=== PATIENT | male | born 1960 | race Caucasian/White ===

== ENCOUNTER 2018-02-02 02:45 | Inpatient (IN) ==
[2018-02-02] MEDS ORDERED: NS 1,000 ML IV ONE ×4 (03:12→04:40)
[2018-02-02] MEDS: SALINE FLUSH 10ml SYRINGE IVF PRN ×2 (03:16→05:33)
--- NOTE | 2018-02-02 03:16 | Emergency Department Report ---
Asthma HPI - General Stated Complaint: fever, v/d, cough Time Seen by Provider: 02/02/18 03:10 Source: patient, family, RN notes reviewed, old records reviewed Mode of arrival: wheelchair Limitations: altered mental status - History of Present Illness HPI Narrative: 57yo man presented to the ER by family for cough/dyspnea/weakness for the past 6 days. Today, pt vomited x1. Pt has refused to see anyone about his sx; sx have been progressive, and today, pt has been confused. Pts family are concerned about him, so they presented him to the ER for further evaluation. Pt does not want to be here, and is ready to be released to home already. MD complaint: shortness of breath Onset (ago): day(s) Severity: severe Associated symptoms: fever - Related Data Current Asthma Therapy: none Home Medications Medication Instructions Recorded Confirmed No known Home medications [No home 07/26/17 02/02/18 meds] Allergies Allergy/AdvReac Type Severity Reaction Status Date / Time No Known Allergies Allergy Verified 02/02/18 03:20 Review of Systems All systems: reviewed and negative except as stated Constitutional: Reports: as per HPI, fever, weakness. Denies: chills, weight change, night sweats Gastrointestinal: Reports: as per HPI, abdominal pain, nausea, vomiting, diarrhea. 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 @ [employer] Current occupational exposures/hazards: No Physical Exam - Limitations Limitations: no limitations - General General appearance: alert, in no apparent distress, obese (Morbid) - Normal Exams: Head:: Normocephalic without trauma Eyes:: Pupils are PERRLA w/ EOMI, No scleral icterus, irritation, or foreign bodies noted ENMT:: No facial trauma, nasal exudates, pharyngeal erythema, or exudates are noted Neck:: Full range of motion, without adenopathy Lymphatic:: No lymphadenopathy Musculoskeletal:: No tenderness, or deformity noted Integumentary:: No rashes, hives, or bruising noted Neurological:: Patient is alert, and oriented - Chest Chest inspection: Present: normal inspection, symmetric chest wall rise. Absent : tenderness, rash - Respiratory Respiratory exam: Present: normal lung sounds bilaterally. Absent: respiratory distress, wheezes, stridor, prolonged expiratory phase, crackles - Cardiovascular Cardiovascular exam: Present: regular rate, normal rhythm, normal heart sounds. Absent: rubs, gallop, clicks - Abdominal Exam Abdominal exam: Present: soft, normal bowel sounds. Absent: distention, tenderness, guarding, rebound, rigidity - Psychiatric Psychiatric exam: Present: flat affect Course - Consultations Consultation #1: Heath Telemed: Will admit for further treatment of presumptive RLL PNA with severe sepsis and ARF. Time: 03:48 Vital Signs Temperature 98.0 F 02/02/18 02:51 Pulse Rate 94 02/02/18 02:51 Respiratory Rate 16 02/02/18 02:51 Blood Pressure 113/60 02/02/18 02:51 Pulse Oximetry 88 L 02/02/18 02:51 Temperature 98.0 F 02/02/18 02:51 Pulse Rate 86 02/02/18 03:37 Respiratory Rate 16 02/02/18 03:37 Blood Pressure 88/54 02/02/18 03:37 Pulse Oximetry 94 02/02/18 03:37 Dyspnea - MDM Narrative Medical decision making narrative: Pt with severe sepsis based on bandemia, hypoxia, hypotension, suspected PNA, and lactate. Pressures have improved with fluids; SaO2 improved with supplemental O2. Atbx, empiric, already on board. - Differential Diagnosis Differential diagnosis: Likely: Acute exacerbation, Pneumonia, COPD exacerbation (gastroenteritis) - Medical Records Attestation: I reviewed the patient's medical records. - Lab Data Attestation: I reviewed the patient's lab results. Result diagrams: 02/02/18 03:18 02/02/18 03:18 Lab Results 02/02/18 02/02/18 Range/Units 03:18 03:18 WBC 4.6 (4.5-11.0) T/MM3 RBC 3.46 L (4.50-5.90) M/MM3 Hgb 10.5 L (13.5-17.5) GM/DL Hct 32.0 L (41-53) % MCV 92.5 (80-100) UM3 MCH 30.3 (26-34) UUG MCHC 32.8 (31-37) GM/DL RDW Std Deviation 60.3 H (36.9-50.2) FL Plt Count 155 (130-400) T/MM3 MPV 10.9 (9.4-12.4) UM3 Immature Gran % (Auto) Not performed Neut % (Auto) Not performed Lymph % (Auto) Not performed Mellette % (Auto) Not performed Eos % (Auto) Not performed Baso % (Auto) Not performed Neut # (Auto) Not performed Lymph # (Auto) Not performed Mellette # (Auto) Not performed Eos # (Auto) Not performed Baso # (Auto) Not performed Abs Immat Gran (auto) Not performed Neutrophils % (Manual) 66.0 (33-66) % Band Neutrophils % 21.0 H (0-6) % Lymphocytes % (Manual) 12.0 L (23-45) % Monocytes % (Manual) 1.0 (0-9.0) % Neutrophils # (Manual) 3.0 (1.8-7.7) T/MM3 Band Neutrophils # 1.0 T/MM3 Lymphocytes # (Manual) 0.6 L (1-4.8) T/MM3 Monocytes # (Manual) 0.0 (0-0.8) T/MM3 RBC Morph Comment Normal Turbidity < 20 (0-20) Sodium 139 (134-144) MEQ/L Potassium 4.0 (3.6-5) MEQ/L Chloride 104 (98-107) MEQ/L Carbon Dioxide 20 L (22-30) MEQ/L Anion Gap 15 (5-15) meq/L BUN 49.0 H (9-20) MG/DL Creatinine 2.7 H (0.8-1.5) mg/dL GFR Calculation 24 BUN/Creatinine Ratio 18 (6-26) RATIO Glucose 135 H (75-110) MG/DL Calculated Osmolality 283 H (261-280) MOSM/KG Calcium 8.8 (8.4-10.2) MG/DL Icterus Index < 2 (0-7) Troponin I < 0.012 (0-0.12) ng/ml NT-Pro-B Natriuret Pep 754 H (0-175) pg/mL Plasma Lactate 4.1 H* (0.6-2.2) MMOL/L Specimen Hemolysis < 15 (0-25) - Radiology Data Attestation: I reviewed the patient's radiology results. CXR: B/l LL infiltrates c/w atalectasis or pulm edema. No focal consolidations or effusions. - EKG Data EKG #1 EKG attestation: Yes: I reviewed and interpreted this EKG. EKG shows normal: sinus rhythm, intervals, QRS complexes, ST-T waves Rate [ED.COU.EKR]: normal Steen/QRS: left axis deviation Interpretation: other (C/w pulm dz) Disposition Clinical Impression: Severe sepsis Pneumonia Qualifiers: Pneumonia type: due to unspecified organism Laterality: right Lung location: lower lobe of lung Qualified Code(s): J18.1 - Lobar pneumonia, unspecified organism ARF (acute renal failure) Qualifiers: Acute renal failure type: unspecified Qualified Code(s): N17.9 - Acute kidney failure, unspecified Disposition: 02 To [facility] [place] Print Language: Sinhala Condition: Improved Prescriptions: No Action No known Home medications [No home meds] 0 #0 [facility] [place] Time of Disposition: 03:55 - Seen By: physician
[2018-02-02] MEDS ORDERED: ONDANSETRON 4 MG/2 ML INJECTION IVP ONE (03:17)
[2018-02-02] MEDS ORDERED: CEFEPIME 1 GM in NS 100 ML IV ONE (03:21)
[2018-02-02] MEDS: LEVOFLOXACIN PB 750 MG/150 ML BAG IV SCH (04:11)
[2018-02-02] MEDS ORDERED: LEVOFLOXACIN PB 750 MG/150 ML BAG IV SCH (04:40)
[2018-02-02] MEDS ORDERED: CEFEPIME 1 GM in NS 100 ML IV SCH (04:40)
--- NOTE | 2018-02-02 05:08 | History & Physical Report ---
History of Present Illness Date: 02/02/18 Chief complaint: confused HPI: This is a very nice 57 y/o male who does not seek health care and has no advertised medical problems. The patient this past Saturday had onset of fever chills and sweats. Cough that was non productive. The patient had congestion, no ear pain, no sore throat, He had chest pain with cough. Increased fatigue and overall did not feel well. He resisted seeking medical care. Today the patient had onset of confusion with his fever. He agreed to come into the ED for evaluation. Labs demonstrated bandemia of 20%/. CXR probable right lower lobe infiltrate. His lactic acid was elevated and evidence of acute renal failure. He will be covered with agressive antibitoics and all cultures will be sent. He was initially hypotensive but did respond to fluids. Review of Systems Review of systems: mild headache, no change in vision. no neck or jaw pain, non productive cough that is worsening. no abdomen pain no nausa/vomiting, no change in bm, no blood in stool. no skin rashes, no new joint pain. no focal neuro complaints. 12 point ROS otherwise neg except for outlined above. Past Medical History Medical History Updates: Denies PMHx (never sees a doctor) Surgical History: no surgical history to report Family History: Family History (Last Updated 07/26/17 @ 17:19 by Yasmin Valdez Myranda) Father Melanoma Mother Cancer of breast Paternal Grandfather Cancer of lung Family History: As Above - Social History Smoking status: Never smoker Medications Home Medications Medication Instructions Recorded Confirmed Type No known Home medications [No home 07/26/17 02/02/18 History meds] Allergies Allergy/AdvReac Type Severity Reaction Status Date / Time No Known Allergies Allergy Verified 02/02/18 03:20 Exam Vital Signs: Temperature 98.0 F 02/02/18 04:45 Pulse Rate 102 H 02/02/18 04:45 Respiratory Rate 20 02/02/18 04:45 Blood Pressure 132/72 02/02/18 04:45 Pulse Oximetry 96 02/02/18 04:45 Telemetry Rhythm: Sinus Rhythm - Constitutional Present: well nourished, well developed, morbidly obese, cooperative - Routine HEENT Exam Head: Present: normocephalic, atraumatic, cushingoid faces Eye: Present: PERRL ENT: Present: mucous membranes moist - Routine Neck Exam Present: supple, full ROM - Routine Respiratory Exam Comments: rhonchi in bases bilaterally - Routine Cardiovascular Exam Present: RRR, no murmur, tachycardia - Routine Abdominal Exam Comments: morbidly obese, very difficult examination. non tender per nursing palpation - Routine Extremities Exam Present: edema, full ROM - Routine Back/Spine/Pelvis Exam Back/Spine: Present: full ROM - Routine Skin Exam Present: intact, dry, warm, normal turgor. Absent: scars, wounds, rash - Routine Neurological Exam Present: oriented X3, CN II-XII intact, moving all extremities, normal tone, vision grossly intact, hearing grossly intact. Absent: motor deficit, altered mental status, hemineglect - Routine Psychiatric Exam Present: normal affect, normal thought process Results - Labs CBC & Chem 7: 02/02/18 03:18 02/02/18 03:18 Labs: results reviewed above and will be addressed below pCXR poor inspiration. evidence of right greater than left atelectasis vs infiltrate Assessment and Plan (1) Septic shock Current visit: Yes Status: Acute (2) ARF (acute renal failure) Current visit: Yes Status: Acute (3) Morbid obesity Current visit: Yes Status: Acute Assessment and Plan: 1. community acquired pneumonia: septic shock on presentation. cefepime/ levaquin. cx sent, adjust based on culture 2. septic shock acute POA: tachy, bandemia, elevated lA and hypotension. responded to 30cc/kg fluids bolus. 3 l. blood presure with improved MAP. no need for pressors. did not start in ICU. continue to monitor sepsis markers 3. acute renal failure POA: hopeful pre renal. fluids and repeat labs in the am. Look at urine sediment. 4. normocytic anemia acute POA: not sure the mechanism for this patient. will check anemia panel and make further recommendations 5. morbid obeisty acute POA; BMI 42. to be aware of 6. dvt ppx; SCD, lovenox 7. gastric ppx; PPI. DVT Prophylaxis: SCD's, Lovenox GI Prophylaxis: Protonix Resuscitation Status: Full Code - Time spent with patient Time with patient PN: 50 minutes - Physician Narrative Physician: Fauzia Vásquez MD Narrative: Date: 02/02/18 Time: 0505 Hospital Course Summary Disclaimer: The visit summary below is not to be considered part of the above Progress Note.
[2018-02-02 05:15] VITALS: BMI 43.6
[2018-02-02] MEDS ORDERED: NS 1,000 ML IV SCH (05:15)
[2018-02-02] MEDS: PANTOPRAZOLE 40 MG INJECTION IVP SCH ×2 (05:31→17:00)
[2018-02-02] MEDS ORDERED: ALBUTEROL/IPRATROPIUM 2.5mg-0.5mg/3ml NEB AEROSOL PRN (07:13)
[2018-02-02] MEDS: ALBUTEROL/IPRATROPIUM 2.5mg-0.5mg/3ml NEB AEROSOL SCH ×4 (07:15→21:03)
[2018-02-02] MEDS: BUDESONIDE INH.SOLN 0.5mg/2ml NEB AEROSOL SCH ×2 (07:17→21:03)
--- NOTE | 2018-02-02 08:18 | XRay Report ---
Indication: Dyspnea PROCEDURE: XR chest 1V: Encounter: Initial Comparison: July 26, 2017 Findings: Increased opacity in the right lower lung field. Lungs are hypoinflated. Left lung appears clear. No pneumothorax or effusion. Heart size, mediastinal contours and pulmonary vascularity are stable. Impression: Right lower lobe airspace disease could represent atelectasis, pneumonia or aspiration. .
[2018-02-02] MEDS: CEFTRIAXONE 1,000 MG in NS 100 ML IV SCH (14:15)
[2018-02-02] MEDS: LR 1,000 ML IV SCH (17:47)
[2018-02-03] MEDS: LEVOFLOXACIN PB 750 MG/150 ML BAG IV SCH (04:14)
[2018-02-03] MEDS: PANTOPRAZOLE 40 MG INJECTION IVP SCH ×2 (06:17→17:41)
[2018-02-03] MEDS: LR 1,000 ML IV SCH ×2 (06:17→16:31)
[2018-02-03] MEDS: BUDESONIDE INH.SOLN 0.5mg/2ml NEB AEROSOL SCH ×2 (08:41→20:52)
[2018-02-03] MEDS: ALBUTEROL/IPRATROPIUM 2.5mg-0.5mg/3ml NEB AEROSOL SCH ×4 (08:41→20:52)
[2018-02-03] MEDS: CEFTRIAXONE 1,000 MG in NS 100 ML IV SCH (09:21)
--- NOTE | 2018-02-03 09:32 | Ultrasound Report ---
EXAM: US renal BI DATE: 02/03/2018 2:05 PM SITE OF DICTATION: Chaim. INDICATION: brisa, unknown renal baseline COMPARISON: None available. TECHNIQUE: Multiple real-time grayscale sonographic images were obtained of the right and left kidneys with color flow and spectral analysis. FINDINGS: The right kidney demonstrates normal corticomedullary differentiation and measures 11.94 x 6.71 x 5.38 cm. There is no right sided mass, calculus or hydronephrosis. The left kidney demonstrates normal corticomedullary differentiation and measures 12.10 x 6.29 x 4.87 cm. There is no left sided mass, calculus or hydronephrosis. Normal bilateral ureteral jets are present. Post void residual volume within the urinary bladder is minimal. IMPRESSION: Normal renal ultrasound. .
[2018-02-03] MEDS ORDERED: IRON - PHARMACY CONSULT MC ONE (15:06)
--- NOTE | 2018-02-03 15:11 | Progress Note ---
- Date 02/03/18 Subjective: Rodrigue is seen today in follow up. He continues to be on 2 liters of oxygen and states that he is feeling better. He does ask to be discharged home today. He continues to have cough during examination. Denies having pain. Appetite has improved and no difficulty with urination. Objective Vital signs: Temperature 97.5 F 02/03/18 08:20 Pulse Rate 83 02/03/18 08:20 Respiratory Rate 20 02/03/18 12:35 Blood Pressure 143/74 H 02/03/18 08:20 Pulse Oximetry 96 02/03/18 12:35 Height/Weight/BMI: Height 1.83 m Weight 145.9 kg Body Mass Index 43.6 - Constitutional Present: no acute distress, well nourished, well developed - Routine HEENT Exam Eye: Present: EOMI ENT: Present: mucous membranes moist, dentition normal - Routine Respiratory Exam Present: diminished air movement. Absent: wheezes - Routine Cardiovascular Exam Present: RRR, S1, S2. Absent: murmur - Routine Abdominal Exam Present: soft, normoactive bowel sounds, non distended. Absent: tenderness - Routine Extremities Exam Present: normal capillary refill - Routine Skin Exam Present: intact, dry, warm - Routine Neurological Exam Present: alert, oriented X3, CN II-XII intact - Routine Lymphatic Exam Lymphatic: Absent: adenopathy - Routine Psychiatric Exam Present: normal affect, normal thought process, cooperative Results - Labs CBC & Chem 7: 02/03/18 04:14 02/03/18 04:14 Assessment and Plan (1) ARF (acute renal failure) Current visit: Yes Status: Acute (2) Septic shock Current visit: Yes Status: Acute (3) Morbid obesity Current visit: Yes Status: Acute Assessment and Plan: Impression Septic shock CAP Acute respiratory failure with hypoxia Acute renal failure Iron Def anemia Morbid Obesity Plan Serial lactate have trended down. Continues on IV Levaquin and Cefepime Continues on oxygen to maintain saturations. will work on weaning down Continue with IV fluid hydration. Renal function is improving. Suspect pre- renal due to hydration Will have him begin to ambulate TID He is very eager to be discharged home. Discussed will need to continue to work on weaning down oxygen and hydration reports he begin getting sick when he was taking ZZZquil (this is Benadryl 25mg). She wonders if this caused the sepsis. Highly unlikely to be related. SCDs for DVT PPX . 02/03/2018-8:30 PM-I examined the patient independently. I reviewed this chart , the patient history, and the [employer]'s/PA's documented findings as above. We discussed and formulated the assessment and plan as above with the additions below.-Dr. Wise Patient was seen this evening in his room. He states he's feeling much better than yesterday. He is currently off of oxygen. His cough is better. He is eating and drinking well. He is urinating frequently on IV fluids. Lab shows creatinine has improved from 2.7 down to 1.6. Hemoglobin is also dropped from 10.5-8.5. He states he has a history of iron deficiency. He has never had a colonoscopy or EGD. He has not seen a doctor in several years. On exam he is alert and in no acute distress. Chest is clear to auscultation. Cardiovascular reveals a regular rate and rhythm. Abdomen is soft and nontender. Extremities are free of edema. Impression and plan Septic shock-resolved Community-acquired pneumonia-improved, continue antibiotics, chest x-ray tomorrow Repeat basic metabolic and CBC with differential tomorrow. Possible dismissal tomorrow. He will need to establish with a primary care doctor. He will need follow-up for his anemia. He will likely need an EGD and colonoscopy. Discussed with the patient and his this evening. - Physician Narrative Narrative: Date: 02/03/18 Time: 1507 Hospital Course Summary Disclaimer: The visit summary below is not to be considered part of the above Progress Note. Hospital Course: 02/03 Serial lactate have trended down. Continues on IV Levaquin and Cefepime Continues on oxygen to maintain saturations. will work on weaning down Continue with IV fluid hydration. Renal function is improving. Suspect pre- renal due to hydration Will have him begin to ambulate TID He is very eager to be discharged home. Discussed will need to continue to work on weaning down oxygen and hydration reports he begin getting sick when he was taking ZZZquil (this is Benadryl 25mg). She wonders if this caused the sepsis. Highly unlikely to be related. SCDs for DVT PPX
[2018-02-03] MEDS ORDERED: FERRIC CARBOXYMALTOSE IV SCH (15:45)
[2018-02-03] MEDS ORDERED: NS IV SCH (15:45)
[2018-02-03] MEDS: SALINE FLUSH 10ml SYRINGE IVF PRN (17:41)
[2018-02-03] MEDS ORDERED: ACETAMINOPHEN 325 MG TABLET PO ONE ×2 (19:44)
[2018-02-03] MEDS ORDERED: ACETAMINOPHEN 325 MG TABLET PO PRN ×2 (19:51→20:01)
[2018-02-04] MEDS: PANTOPRAZOLE 40 MG INJECTION IVP SCH (03:44)
[2018-02-04] MEDS: LEVOFLOXACIN PB 750 MG/150 ML BAG IV SCH (03:45)
[2018-02-04 08:11] VITALS: BP 155/100; TEMP 99.2
--- NOTE | 2018-02-04 08:12 | Pharmacy Consult ---
Pharmacy Consult-Iron - Laboratory Information Iron [facility] 02/03/18 02/03/18 02/04/18 04:14 04:14 05:06 Hgb 8.5 L D 9.1 L Hct 26.3 L D 27.2 L Iron 42 L TIBC 193 L % Saturation 22 - Consult Information IV IRON THERAPY: There is a nationwide shortage of iron dextran so I used Injectfer 750 mg iv. The pateint will need another dose in 7 days. Fan Pinon [facility]
[2018-02-04 08:13] VITALS: PULSE 77
--- NOTE | 2018-02-04 08:36 | XRay Report ---
INDICATION: pneumonia? PROCEDURE: CHEST 2-VIEWS UPRIGHT (PA & LAT) Encounter: Initial COMPARISON: February 02, 2018 FINDINGS: Continued airspace consolidation in the right lower lobe. There is also new airspace disease in the lingula. No pneumothorax or pleural effusion. Heart size and mediastinal contours are stable. Pulmonary vascularity is normal. Impression: Persistent right lower lobe pneumonia with developing lingular infiltrate could represent peribronchial spread of infection. .
[2018-02-04] MEDS: BUDESONIDE INH.SOLN 0.5mg/2ml NEB AEROSOL SCH (08:58)
[2018-02-04] MEDS: ALBUTEROL/IPRATROPIUM 2.5mg-0.5mg/3ml NEB AEROSOL SCH (08:58)
[2018-02-04 09:19] VITALS: RESP 20; O2SAT 90
[2018-02-04] MEDS: CEFTRIAXONE 1,000 MG in NS 100 ML IV SCH (09:26)
--- NOTE | 2018-02-04 10:04 | Discharge Summary ---
Discharge Information Date of admission: 02/02/18 04:00 Anticipated date of discharge: 02/04/18 Attending Physician: Dominga Wise MD Primary care physician: Going to establish with Dr Aravind Bradley Consults: None - Discharge Diagnosis (1) ARF (acute renal failure) Status: Acute (2) Septic shock Status: Acute (3) Morbid obesity Status: Acute Septic shock CAP Acute respiratory failure with hypoxia Acute renal failure Iron Def anemia Morbid Obesity Elevated blood pressure-may be white coat syndrome-no medications started for bp this admission - Procedures Procedures: None - Laboratory Labs: 02/04/18 05:06 02/04/18 05:06 Laboratory Tests 02/02/18 02/02/18 02/02/18 03:18 03:18 09:05 Hgb 10.5 L MCV 92.5 Neutrophils % (Manual) 66.0 Band Neutrophils % 21.0 H BUN 49.0 H Creatinine 2.7 H Iron TIBC % Saturation Ferritin Troponin I < 0.012 Plasma Lactate 4.1 H* 4.4 H* Vitamin B12 Folate 02/02/18 02/02/18 02/03/18 16:14 18:53 04:14 Hgb MCV Neutrophils % (Manual) Band Neutrophils % BUN Creatinine Iron TIBC % Saturation Ferritin Troponin I Plasma Lactate 2.4 H 2.0 1.3 Vitamin B12 Folate 02/03/18 02/03/18 02/04/18 04:14 04:14 05:06 Hgb 8.5 L D MCV Neutrophils % (Manual) Band Neutrophils % BUN Creatinine Iron 42 L TIBC 193 L % Saturation 22 Ferritin 304 Troponin I Plasma Lactate Vitamin B12 Pending Folate Pending 02/04/18 05:06 Hgb 9.1 L MCV Neutrophils % (Manual) 66.0 Band Neutrophils % 1.0 D BUN Creatinine Iron TIBC % Saturation Ferritin Troponin I Plasma Lactate Vitamin B12 Folate - Microbiology Microbiology 02/02/18 07:01 Urine Legionella Urinary Antigen - Final-negative Blood cultures 2- negative to date - Radiology Radiology: 02/02/17- Chest Xray- Impression: Right lower lobe airspace disease could represent atelectasis, pneumonia or aspiration. 02/03/18- Renal Sonogram- Normal renal ultrasound. 02/04/18- Chest Xray- Impression: Persistent right lower lobe pneumonia with developing lingular infiltrate could represent peribronchial spread of infection. - Pathology None History of Present Illness HPI: This is a very nice 57 y/o male who does not seek health care and has no advertised medical problems. The patient this past Saturday had onset of fever chills and sweats. Cough that was non productive. The patient had congestion, no ear pain, no sore throat, He had chest pain with cough. Increased fatigue and overall did not feel well. He resisted seeking medical care. Today the patient had onset of confusion with his fever. He agreed to come into the ED for evaluation. Labs demonstrated bandemia of 20%/. CXR probable right lower lobe infiltrate. His lactic acid was elevated and evidence of acute renal failure. He will be covered with agressive antibitoics and all cultures will be sent. He was initially hypotensive but did respond to fluids. Objective Vital signs: Temperature 99.2 F 02/04/18 08:00 Pulse Rate 77 02/04/18 08:00 Respiratory Rate 20 02/04/18 09:14 Blood Pressure 155/100 H 02/04/18 08:00 Pulse Oximetry 90 02/04/18 09:14 Height/Weight/BMI: Height 1.83 m Weight 145.6 kg Body Mass Index 43.6 - Constitutional Present: no acute distress, well nourished, well developed - Routine HEENT Exam Eye: Present: EOMI ENT: Present: mucous membranes moist, dentition normal - Routine Respiratory Exam Absent: wheezes Comments: Course breath sound right - Routine Cardiovascular Exam Present: RRR, S1, S2. Absent: murmur - Routine Abdominal Exam Present: soft, normoactive bowel sounds, non distended. Absent: tenderness - Routine Extremities Exam Present: no edema - Routine Skin Exam Present: intact, dry, warm - Routine Neurological Exam Present: alert, oriented X3, CN II-XII intact, moving all extremities - Routine Lymphatic Exam Lymphatic: Absent: adenopathy - Routine Psychiatric Exam Present: normal affect, normal thought process, cooperative Hospital Course This is a general summary of the patient's hospital course. For more details refer to the complete medical record. Hospital course: 02/02/18- Admission (1) Septic shock Current visit: Yes Status: Acute (2) ARF (acute renal failure) Current visit: Yes Status: Acute (3) Morbid obesity Current visit: Yes Status: Acute Assessment and Plan: 1. community acquired pneumonia: septic shock on presentation. cefepime/ levaquin. cx sent, adjust based on culture 2. septic shock acute POA: tachy, bandemia, elevated lA and hypotension. responded to 30cc/kg fluids bolus. 3 l. blood presure with improved MAP. no need for pressors. did not start in ICU. continue to monitor sepsis markers 3. acute renal failure POA: hopeful pre renal. fluids and repeat labs in the am. Look at urine sediment. 4. normocytic anemia acute POA: not sure the mechanism for this patient. will check anemia panel and make further recommendations 5. morbid obeisty acute POA; BMI 42. to be aware of 6. dvt ppx; SCD, lovenox 7. gastric ppx; PPI. 02/03 Serial lactate have trended down. Continues on IV Levaquin and Cefepime Continues on oxygen to maintain saturations. will work on weaning down Continue with IV fluid hydration. Renal function is improving. Suspect pre- renal due to hydration Will have him begin to ambulate TID He is very eager to be discharged home. Discussed will need to continue to work on weaning down oxygen and hydration reports he begin getting sick when he was taking ZZZquil (this is Benadryl 25mg). She wonders if this caused the sepsis. Highly unlikely to be related. SCDs for DVT PPX 02/04/18-Discharge- Rodrigue is seen and examined today prior to discharge. Overall , he states that he is feeling better in regards to his dyspnea and cough. He does continue to feel worn down and fatigued. He has been able to wean off oxygen and remained on room air throughout the night. Although he did have approximately 5% of the time in which he was less than 89%. He does not qualify for any home oxygen. She will continue to be on Levaquin 750 milligrams daily for 5 additional days. It is recommended that he utilize Mucinex twice a day. In regards to his anemia. We will start patient on iron supplementation. I did discuss at great length with patient and regarding the importance of primary care establishment. He is planning to establish with Dr. Aravind Bradley. I also discussed the importance of anemia workup including possible colonoscopy at which he seems quite reluctant to. He is willing to establish with primary care and follow-up. He is discharged in stable condition with Time spent with patient: discharge greater than 30 minutes Resuscitation Status: Full Code Discharge Plan - Discharge Disposition Discharge Date: 02/04/18 Disposition: 01 Discharged Home, Self-Care *Condition: Improved Reason For Visit (Visit label in EMR): pneumonia,sepsis - Discharge Medications *Discharge Medications: New levoFLOXacin [Levaquin] 750 mg PO ACB #5 tab guaiFENesin [Mucinex] 600 mg PO BID #10 tab.er.12h Ferrous Gluconate 1 tab PO BIDWM #30 tab - Discharge Packet/Instructions *Diet: Regular *Activity: As tolerated *Pain Management/Treatment: Tylenol as needed for pain *Wound Care: None Additional Instructions: Take Levaquin daily for 5 days. Mucinex twice a day for 5 days. No working this week. Iron supplementation as directed. We need to establish with Dr. Bradley as planned. Will need further anemia workup *Expected Signs/Symptoms: improvement in coughing and dyspnea *Notify Physician if: fever, chills, shortness of breath, chest pain or other concening symptoms *During Business Hours Contact: Contact [facility] *After Business Hours Contact: Page on-call provider at [facility] *Pending Lab/Results: Follow up w/Provider (b12 and folate are pending) - Referrals/Follow Up *Referrals/Follow Up: Aravind Bradley MD [Physician] - (Provider's office will call you with an appointment date) - Patient Handouts Patient Handouts: Pneumonia (GEN) - Dismissal Complete Discharge Instructions are:: Complete Physician Narrative - Narrative Physician: Dominga Wise MD Attestation Narrative: Date: 02/04/18 Time: 11:22 AM-I examined the patient independently. I reviewed this chart, the patient history, and the INSIDE WIREMAN's/PA's documented findings as above. We discussed and formulated the assessment and plan as above with the additions below.-Dr. Wise The patient was seen this morning in his room accompanied by his . He states he's feeling better. He is breathing okay. He is on room air. He states he is anxious here in the hospital and blood pressure is elevated currently at 155/100. He is asymptomatic. On exam he is alert and in no acute distress. Chest is clear to auscultation. Cardiovascular is a regular rate and rhythm. Abdomen is soft and nontender. Extremities are free of edema. Chest x-ray today compared to 02/02/2018 shows persistent right lower lobe pneumonia with developing lingular infiltrate which could represent peribronchial spread of infection. I reviewed the chest x-ray myself and agree. Impression and plan Community-acquired pneumonia-overall, the patient is showing rapid improvement symptomatically. I think at this point he can be discharged on oral Levaquin. Acute hypoxic respiratory failure has resolved. The patient is at risk for sleep apnea and may benefit from a formal sleep evaluation. Regarding the patient's anemia, he does need follow-up with primary care provider. Iron was borderline low. B-12 and folic acid levels are pending. I think he would benefit from undergoing colonoscopy and may need further workup of anemia as well as. Regarding elevated blood pressure, it is uncertain if the increase in his blood pressure is secondary to anxiety from being in the hospital. He will need to have his blood pressure followed up as an outpatient. The importance of routine follow-up with primary care provider as an outpatient was discussed with the patient and his .
--- NOTE | 2018-02-04 10:08 | Work/School Release ---
<Alba Jeong V - Last Filed: 02/04/18 10:07> Work/School Release - Date Date: 02/04/18 - Work Release Remain off work/school for:: Please excuse from work until 02/10/18 due to illness May return to work on:: 02/10/18 <Dominga Wise - Last Filed: 02/04/18 11:18> Work/School Release - Date Date: 02/04/18
== END 2018-02-04 11:42 | disposition home or self-care (01) | DRG 871 ==
LOC: ED 02:45 → SUATTDRO 04:00 → MED 04:00
PROVIDERS: ADMIT Emergency Medicine; ATTEND Internal Medicine